=== PATIENT | male | born 1960 | race Hispanic/Latino ===

== ENCOUNTER 2018-06-11 09:07 | Inpatient (IN) | payer BC ==
[~2018-06-11] VITALS: Ht 167.6 cm; Wt 71.4 kg
[~2018-06-11 09:07] MED LIST: LACT1CAP58 PO; LEVO500T2 PO
[2018-06-11 09:46] LABS: BASOPHILS % (AUTO) 0.1 % (0.0-5.0); HEMATOCRIT 47.1 % (42-54); LYMPHOCYTES % (AUTO) 1.3 % (21.0-51.0); MEAN CORPUSCULAR HEMOGLOBIN 28.3 pg (27.0-33.0); MEAN CORPUSCULAR HGB CONC 32.5 g/dL (32.0-36.0); MONOCYTES % (AUTO) 6.1 % (3.0-13.0); NEUTROPHILS % (AUTO) 92.5 % (40.0-77.0); PLATELET COUNT (AUTO) 589 K/uL (130-400); RED BLOOD CELL COUNT(AUTO) 5.41 MIL/uL (4.50-6.20); RED CELL DISTRIBUTION WIDTH 15.4 % (11.0-15.5)
[2018-06-11 09:47] LABS: ALBUMIN 3.2 g/dL (3.5-5.0); BILIRUBIN,TOTAL 1.9 mg/dL (0.2-1.0); CREATININE 1.7 mg/dL (0.5-1.5); POTASSIUM 3.6 mmol/L (3.5-5.1); TOTAL PROTEIN, SERUM 8.1 g/dL (6.0-8.3); WHITE BLOOD COUNT (AUTO) 31.6 K/uL (4.8-10.8)
[2018-06-11] MEDS ORDERED: ONDANSETRON HCL 4 MG/2 ML VIAL ONE ×2 (09:50→13:34)
[2018-06-11 10:16] LABS: BAND NEUTROPHILS % (MANUAL) 21 % (0-2); LYMPHOCYTES % (MANUAL) 2 % (22-44); MAN.DIFF COMMENT-IMPRESSION MANUAL DIFFERENTIAL; MONOCYTES % (MANUAL) 7 % (2-9); SEGMENTED NEUTROPHILS % 70 % (40-70)
[2018-06-11] MEDS ORDERED: ZOSYN 3.375GM+NS 50ML 50 ML IV ONE (10:18)
[2018-06-11] MEDS ORDERED: FENTANYL CITRATE PF 50 MCG/1 ML 2ML VIAL ONE (11:17)
[2018-06-11] MEDS: SODIUM CHLORIDE 0.9% 1000ML 1,000 ML IV SCH (12:35)
[2018-06-11] MEDS ORDERED: LACTULOSE 20 GM/30 ML UDCUP PO PRN (12:45)
[2018-06-11] MEDS ORDERED: ACETAMINOPHEN 325 MG TAB PO PRN ×2 (12:45)
[2018-06-11] MEDS ORDERED: MORPHINE SULFATE 4 MG/1ML SYG IV PRN (12:45)
[2018-06-11] MEDS ORDERED: HYDRALAZINE HCL 20 MG/ML VIAL IV PRN (12:45)
[2018-06-11] MEDS ORDERED: MORPHINE SULFATE 2 MG/ML 1ML SYG IV PRN (12:45)
[2018-06-11] MEDS ORDERED: MORPHINE SULFATE 4 MG/1ML SYG ONE (13:35)
[2018-06-11 15:45] VITALS: BP 94/66
[2018-06-11] MEDS: ONDANSETRON HCL 4 MG/2 ML VIAL IV PRN (17:11)
[2018-06-11 18:32] LABS: CREATINE KINASE, TOTAL 42 U/L (21-232); MYOGLOBIN 127 ng/mL (10-92); TROPONIN I < 0.04 ng/mL (0.00-0.06)
[2018-06-11 19:00] VITALS: BP 100/65
[2018-06-11] MEDS ORDERED: HYDROMORPHONE 1 MG/1 ML AMP ONE (19:39)
[2018-06-11] MEDS ORDERED: LORAZEPAM 2 MG/ML 1 ML VIAL IVP PRN (22:00)
[2018-06-11 23:00] VITALS: BP 81/56
[2018-06-12] VITALS (38 sets, daily range): BP systolic 96–174; BP diastolic 45–103
[2018-06-12] MEDS: HYDROMORPHONE 1 MG/1 ML AMP IVP PRN (03:26)
--- NOTE | 2018-06-12 03:26 | NUR ---
NN CALL PLACED TO [facility] AND SPOKE WITH JEROME HUANG AND INFORMED OF CURRENT PATIENT STATUS SBP RANGING 85-97 AND DBP 56-58 WITH HR 120-130. NO ORDERS GIVEN AT THIS TIME, WILL CONTINUE TO MONITOR PATIENT. CALL LIGHT IN REACH.
[2018-06-12 03:43] LABS: APPEARANCE,URINE Cloudy (CLEAR); BILIRUBIN,URINE Moderate (NEGATIVE); GLUCOSE, URINE (UA) Negative (NEGATIVE); KETONES,URINE Negative (NEGATIVE); LEUKOCYTE ESTERASE ,URINE Moderate (NEGATIVE); NITRATE,URINE Positive (NEGATIVE); OCCULT BLOOD,URINE Negative (NEGATIVE); PROTEIN,URINE Trace mg/dL (NEGATIVE)
[2018-06-12 03:46] LABS: COLOR,URINE BROWN (YELLOW)
--- NOTE | 2018-06-12 04:00 | NUR ---
NN SPOKE WITH KYLER, COMMUNICATION EQUIPMENT REPAIRER AND INFORMED OF PATIENT STATUS AND PATIENT ASSIGNED TO ROOM 207. PATIENT INFORMED OF ROOM CHANGE AND STATED THAT HE WOULD CALL HIS SON TO LET HIM KNOW OF ROOM TRANSFER.
[2018-06-12 04:04] LABS: BACTERIA,URINE Moderate /HPF (None Seen)
[2018-06-12 04:06] LABS: SQUAMOUS EPITHELIAL CELL,UR 0-2 /HPF (0-2)
[2018-06-12 04:08] LABS: CREATININE,URINE RANDOM 141 mg/dL (30-135); SODIUM,URINE RANDOM 16 mmol/l (40-220)
[2018-06-12 04:13] LABS: AMPHET/METH SCREEN,URINE NEGATIVE (NEGATIVE); BARBITURATE SCREEN, URINE NEGATIVE (NEGATIVE); BENZODIAZEPINES SCREEN,URINE NEGATIVE (NEGATIVE); CANNABINOID SCREEN,URINE NEGATIVE (NEGATIVE); COCAINE SCREEN,URINE NEGATIVE (NEGATIVE); OPIATE SCREEN,URINE POSITIVE (NEGATIVE); PHENCYCLIDINE SCREEN,URINE NEGATIVE (NEGATIVE)
--- NOTE | 2018-06-12 04:17 | NUR ---
Patient transfer. Report received from Annabella MEMBRENO. from . Patient arrived with HR in the 130-140's and systolic bloop pressure in the 80's as per nurse patient has been steadily dropping as well as HR increasing. Paged Dr. Carolina. Brijesh PAINT TINTER alberene stone setter. Brijesh was notified of patients current vitals and laboratory results. Updated on patient current WBC count and lactic acid. Notified PAINT TINTER of patient was not on any antibiotics and only infusing normal saline at 150ml/hr. No orders were received. will continue to monitor patient.
[2018-06-12] MEDS: SODIUM CHLORIDE 0.9% 1000ML 1,000 ML IV SCH ×5 (04:53→21:17)
[2018-06-12 06:13] LABS: BASOPHILS % (AUTO) 0.1 % (0.0-5.0); HEMATOCRIT 45.2 % (42-54); LYMPHOCYTES % (AUTO) 4.1 % (21.0-51.0); MEAN CORPUSCULAR HEMOGLOBIN 27.6 pg (27.0-33.0); MEAN CORPUSCULAR HGB CONC 31.4 g/dL (32.0-36.0); MONOCYTES % (AUTO) 10.7 % (3.0-13.0); NEUTROPHILS % (AUTO) 85.1 % (40.0-77.0); PLATELET COUNT (AUTO) 466 K/uL (130-400); RED BLOOD CELL COUNT(AUTO) 5.14 MIL/uL (4.50-6.20); RED CELL DISTRIBUTION WIDTH 15.6 % (11.0-15.5); WHITE BLOOD COUNT (AUTO) 17.6 K/uL (4.8-10.8)
[2018-06-12 06:28] LABS: ALBUMIN 1.9 g/dL (3.5-5.0); BILIRUBIN,TOTAL 0.7 mg/dL (0.2-1.0); CREATININE 2.9 mg/dL (0.5-1.5); PHOSPHORUS 8.8 mg/dL (2.5-4.9); TOTAL PROTEIN, SERUM 6.3 g/dL (6.0-8.3)
[2018-06-12] MEDS: METOCLOPRAMIDE 10 MG/2 ML VIAL IVP SCH ×3 (06:38→17:00)
[2018-06-12 07:28] LABS: POTASSIUM 6.1 mmol/L (3.5-5.1)
[2018-06-12] MEDS ORDERED: SODIUM CHLORIDE 0.9% 1000ML 1,000 ML IV SCH (07:56)
[2018-06-12] MEDS ORDERED: SODIUM POLYSTYRENE SULFONATE 15 GM/60 ML ML PO SCH (08:00)
[2018-06-12] MEDS ORDERED: RENAL DOSE IV SCH (08:00)
[2018-06-12] MEDS ORDERED: SODIUM BICARB 8.4% 50ML SYRING 150 MEQ in DEXTROSE 5%-WATER 1,000 ML IV SCH (08:00)
[2018-06-12] MEDS ORDERED: DEXTROSE 50%-WATER 25 GM/50 ML VIAL IV SCH (08:15)
[2018-06-12] MEDS ORDERED: INSULIN HUMULIN R 100 UNIT/ML 3ML IV SCH (08:15)
--- NOTE | 2018-06-12 08:30 | NUR ---
DR. ESTRADA IN ROOM WITH PT. FOR CONSULT. DR. ESTRADA EXPLAINING PLAN OF CARE TO PT. MD INFORMED RE:VS, LABS AND CURRENT MEDICATION REGIMEN AND ORDERS RECEIVED; NEW ORDERS RECEIVED FROM DR. ESTRADA.
--- NOTE | 2018-06-12 08:35 | NUR ---
NGT LEFT CLAMPED AFTER KAYEXALATE ADMINISTRATION.
[2018-06-12] MEDS: FAMOTIDINE/PF 20 MG/2 ML VIAL IV SCH (08:41)
--- NOTE | 2018-06-12 08:50 | NUR ---
DR. GRIFFITH IN ROOM ASSESSING/SPEAKING WITH PT. RE:PLAN OF CARE. QUESTIONS ANSWERED BY DR. ESTRADA.
[2018-06-12] MEDS: ZOSYN 3.375GM+NS 50ML 50 ML IV SCH ×2 (08:52→22:16)
[2018-06-12] MEDS: NICOTINE 14 MG/ 24 HR PATCH TD SCH ×2 (08:53→12:31)
[2018-06-12] MEDS ORDERED: NICOTINE 14 MG/ 24 HR PATCH TD SCH (09:00)
--- NOTE | 2018-06-12 09:00 | NUR ---
TRANSFERRED TO ICU ROOM 207 VIA BED WITH BELONGINGS ACCOMPANIED BY THIS NURSE AND Guero GUZMAN, PCP. REPORT TO Elizabet HENDRICKS RN.
[2018-06-12] MEDS ORDERED: PHARMACY COMMUNICATION MISC SCH (09:15)
--- NOTE | 2018-06-12 09:15 | NUR ---
PATIENT RECEIVED FROM ROOM 203; REPORT GIVEN BY HASEEB MCDONALD IN TELE; PATIENT AAOX3, WITH NGT, F/C, HR 130S; SBP 90-120S; POTASSIUM 6.1; DR ESTRADA AND DR GRIFFITH AWARE.
[2018-06-12] MEDS: VANCOMYCIN HCL 250MG=5ML PO SCH ×6 (10:00→22:00)
[2018-06-12] MEDS ORDERED: COMPOUND PO MISCELLANEOUS 1 EACH MISC MISC PRN (10:00)
[2018-06-12] MEDS: M.V.I. IV [ADULT] 10 ML, FOLIC ACID 1 MG, THIAMINE HCL 100 MG in SODIUM CHLORIDE 0.9% 1... IV SCH (10:01)
--- NOTE | 2018-06-12 12:30 | NUR ---
PRIOR NICOTINE PATCH TO LEFT ARM HAD FALLEN OFF; NEW ONE PLACED TO RIGHT UPPER CHEST
--- NOTE | 2018-06-12 13:30 | NUR ---
DR ESTRADA UPDATED ON PATIENT STATUS; HR REMAINS ELEVATED 120-130S; PATIENT TO BE TAKEN TO OR LATER TODAY FOR EXPLORATORY LAP BY DR STAPLES; NO FURTHER ORDERS GIVEN
--- NOTE | 2018-06-12 13:32 | NUR ---
SONIDO PLAN VISITED WITH PATIENT. PATIENT WITH NURSING AND LAB. NOT STABLE. CM WILL FOLLOW UP ONCE PATIENT ABLE TO ANSWER QUESTIONS. Addendum: 06/12/18 at 1333 by YOVANI HERRERA RN CM Amended: Links added.
[2018-06-12 13:38] LABS: CREATININE 2.7 mg/dL (0.5-1.5); POTASSIUM 5.4 mmol/L (3.5-5.1)
[2018-06-12] MEDS: METRONIDAZOLE 500MG/100ML BAG 100 ML IV SCH ×2 (14:18→23:11)
--- NOTE | 2018-06-12 17:00 | NUR ---
PATIENT TAKEN TO OR AT THIS TIME
[2018-06-12] MEDS ORDERED: KETAMINE 50MG/ML SYRINGE 50 MG/ML DISP.SYRIN IV ONE (17:31)
[2018-06-12] MEDS ORDERED: VASOPRESSIN 20 UNITS/ML 1ML VIAL ONE (17:32)
[2018-06-12] MEDS ORDERED: FENTANYL CITRATE PF 50 MCG/1 ML 2ML VIAL ONE ×2 (17:40→18:11)
[2018-06-12] MEDS ORDERED: MIDAZOLAM HCL 1 MG/ML 2ML VIAL ONE (17:40)
[2018-06-12] MEDS ORDERED: ROCURONIUM 10MG/1ML SYR 10 MG/ML ML ONE (17:41)
[2018-06-12 19:40] LABS: ABG BASE EXCESS -15.2 mmol/L (-2.0-3.0); ABG HCO3 14.1 mmol/L (21.0-28.0); ABG OXYGEN SATURATION 99.5 % (95.0-99.0); ABG PCO2 47 mmHg (35-48)
[2018-06-12] MEDS ORDERED: NOREPINEPHRINE BITARTRATE 1 MG/1 ML ML IV ONE (19:41)
[2018-06-12 19:43] LABS: ABG BASE EXCESS -15.1 mmol/L (-2.0-3.0); ABG HCO3 14.1 mmol/L (21.0-28.0); ABG OXYGEN SATURATION 99.5 % (95.0-99.0); ABG PCO2 46 mmHg (35-48)
[2018-06-12 20:17] LABS: ABG BASE EXCESS -8.2 mmol/L (-2.0-3.0); ABG HCO3 16.4 mmol/L (21.0-28.0); ABG OXYGEN SATURATION 99.3 % (95.0-99.0); ABG PCO2 32 mmHg (35-48)
[2018-06-12] MEDS ORDERED: PROPOFOL 1000 MG/100 ML 100 ML IV ONE (20:30)
--- NOTE | 2018-06-12 20:30 | NUR ---
RECEIVED BY BED FROM OR SP EXP LAP. ORAL ETT IN PLACE AND PLACED ON VENT WITH ORDERED SETTINGS BY RT. BBS EQUAL PRESENT. ETT SECURED IN PLACE BY RT. HAS LEVOPHED DRIP INFUSING FROM OR. RRA LINE IN PLACE AND LEVELED AND ZEROED WITH GOOD WAVEFORM ON MONITOR. DDI TO MID ABDOMEN. CHAR IN PLACE TO L AND R ABDOMEN . RT COLOSTOMY IN PLACE WITH BAG AND NO DRAINAGE NOTE. L IELOSTOMY IN PLACE WITH BAG AND NO DRAIN AGE NOTED. FC TO BSD. .
[2018-06-12] MEDS ORDERED: SODIUM BICARB 50MEQ 50ML VIAL ONE (20:40)
--- NOTE | 2018-06-12 21:15 | NUR ---
WAKING UP LIFTING ARMS AND TRYING TO PULL LINES. FABRIC AND TEXTILE FACTORY WORKER HERE AND PROPOFOL STARTED FOR VENT CONTROL.
[2018-06-12 21:29] LABS: ABG BASE EXCESS -3.3 mmol/L (-2.0-3.0); ABG HCO3 20.2 mmol/L (21.0-28.0); ABG OXYGEN SATURATION 97.7 % (95.0-99.0); ABG PCO2 32 mmHg (35-48)
--- NOTE | 2018-06-12 21:30 | NUR ---
VISIT FAMILY MEMBERS IN AND QUESTIONS ANSWERED. NOTIFIED THAT 1 PERSON COULD STAY OVER NIGHT.
--- NOTE | 2018-06-12 21:40 | NUR ---
PHOSPHORIC ACID OPERATOR CALL TATE GIL FOR BENCHMARK CALLED AND GIVEN ABG RESULTS VS. ORDERS RECEIVED.
[2018-06-12] MEDS ORDERED: MIDAZOLAM 100MG-0.9% NS 100ML 100 ML IV PRN (22:00)
[2018-06-12] MEDS: FENTANYL 2500MCG+NS 250ML 250 ML IV PRN (22:07)
--- NOTE | 2018-06-12 22:15 | NUR ---
STATUS SEDATION CHANGED TO FENTANYL AND VERSED PER NEW ORDER. FAMILY MEMBER REMAINS AT BEDSIDE AND QUESTIONS ANSWERED.
[2018-06-13] VITALS (25 sets, daily range): BP systolic 113–166; BP diastolic 71–100
[2018-06-13] MEDS: SODIUM CHLORIDE 0.9% 1000ML 1,000 ML IV SCH ×3 (03:42→18:41)
[2018-06-13] MEDS: VANCOMYCIN HCL 250MG=5ML PO SCH ×2 (03:42)
[2018-06-13 03:59] LABS: MEAN CORPUSCULAR HEMOGLOBIN 27.7 pg (27.0-33.0); MEAN CORPUSCULAR HGB CONC 32.4 g/dL (32.0-36.0); MEAN CORPUSCULAR VOLUME 85.4 fL (79-99); PLATELET COUNT (AUTO) 410 K/uL (130-400); RED BLOOD CELL COUNT(AUTO) 4.22 MIL/uL (4.50-6.20); RED CELL DISTRIBUTION WIDTH 15.6 % (11.0-15.5); WHITE BLOOD COUNT (AUTO) 13.1 K/uL (4.8-10.8)
[2018-06-13 04:08] LABS: CREATININE 1.7 mg/dL (0.5-1.5); POTASSIUM 4.1 mmol/L (3.5-5.1)
[2018-06-13] MEDS: METOCLOPRAMIDE 10 MG/2 ML VIAL IVP SCH ×3 (05:40→18:41)
[2018-06-13] MEDS: METRONIDAZOLE 500MG/100ML BAG 100 ML IV SCH ×3 (06:05→22:08)
--- NOTE | 2018-06-13 07:00 | NUR ---
MD ROUNDS in to see pt - updated. Pt assessed by MD. Orders received - refer to EMR.
[2018-06-13] MEDS: ZOSYN 3.375GM+NS 50ML 50 ML IV SCH ×2 (09:09→20:53)
[2018-06-13] MEDS: FAMOTIDINE/PF 20 MG/2 ML VIAL IV SCH (09:10)
[2018-06-13] MEDS: M.V.I. IV [ADULT] 10 ML, FOLIC ACID 1 MG, THIAMINE HCL 100 MG in SODIUM CHLORIDE 0.9% 1... IV SCH (10:13)
--- NOTE | 2018-06-13 12:49 | NUR ---
DC PLAN PATIENT LIVES WITH SON. INDEPENDENT ABLE TO PERFORM ADL'S. PATIENT HAS NO SERVICES OR DME'S. FEELS SAFE TO RETURN HOME ONCE STABLE. AT THIS TIME PATIENT S/P EXP LAPAROTOMY. VENTED AT THIS TIME. Addendum: 06/13/18 at 1253 by YOVANI HERRERA RN CM Amended: Links added.
--- NOTE | 2018-06-13 13:20 | NUR ---
PT CARE Drsg change performed to abd incision. Wound bed clean - no drainage - no odor. Wound bed is pink. No bleeding. Damp 4x4's placed in wound bed - covered with abd pad and secured with medipore tape. No evidence of pt distress with wound care.
--- NOTE | 2018-06-13 15:41 | NUR ---
Pt Care Received report from Bridget MEMBRENO.
--- NOTE | 2018-06-13 16:17 | NUR ---
Turn Pt turned to left side. Assisted by Ananth MEMBRENO
--- NOTE | 2018-06-13 22:03 | NUR ---
CALL PLACED TO DR WEISS FOR HEPARIN ORDERED BY DR ESTRADA.
[2018-06-13] MEDS: HEPARIN SODIUM 5000UNIT/ML 1ML VIAL SQ SCH (22:08)
[2018-06-14] VITALS (23 sets, daily range): BP systolic 125–154; BP diastolic 67–98
--- NOTE | 2018-06-14 | NUR ---
PT CARE Drsg changed to abd incision. Wound bed pink, no drainage or odor. Damp 4x4's applied in incisional area- covered with abd pad and secured with medipore tape. Pt tolerated procedure well.
[2018-06-14] MEDS: SODIUM CHLORIDE 0.9% 1000ML 1,000 ML IV SCH (00:42)
[2018-06-14] MEDS: FENTANYL 2500MCG+NS 250ML 250 ML IV PRN (02:26)
[2018-06-14 04:08] LABS: HEMATOCRIT 30.3 % (42-54); MEAN CORPUSCULAR HEMOGLOBIN 27.6 pg (27.0-33.0); MEAN CORPUSCULAR HGB CONC 32.5 g/dL (32.0-36.0); NUCLEATED RED BLOOD CELLS 0.1 % (0.0-0.19); PLATELET COUNT (AUTO) 283 K/uL (130-400); RED BLOOD CELL COUNT(AUTO) 3.57 MIL/uL (4.50-6.20); RED CELL DISTRIBUTION WIDTH 15.6 % (11.0-15.5); WHITE BLOOD COUNT (AUTO) 12.9 K/uL (4.8-10.8)
[2018-06-14 04:25] LABS: ALBUMIN 1.1 g/dL (3.5-5.0); BILIRUBIN,TOTAL 0.7 mg/dL (0.2-1.0); CREATININE 1.1 mg/dL (0.5-1.5); MAGNESIUM 3.1 mg/dL (1.80-2.40); PHOSPHORUS 1.4 mg/dL (2.5-4.9); POTASSIUM 3.2 mmol/L (3.5-5.1); TOTAL PROTEIN, SERUM 4.5 g/dL (6.0-8.3)
[2018-06-14] MEDS: METRONIDAZOLE 500MG/100ML BAG 100 ML IV SCH (05:16)
[2018-06-14] MEDS: METOCLOPRAMIDE 10 MG/2 ML VIAL IVP SCH ×3 (06:52→17:56)
[2018-06-14] MEDS: 1/2 NORMAL SALINE 1,000 ML IV SCH ×2 (07:58→13:36)
[2018-06-14] MEDS: FAMOTIDINE/PF 20 MG/2 ML VIAL IV SCH ×2 (09:11→20:59)
[2018-06-14] MEDS: ZOSYN 3.375GM+NS 50ML 50 ML IV SCH ×2 (09:15→20:59)
[2018-06-14] MEDS: NICOTINE 14 MG/ 24 HR PATCH TD SCH (09:17)
[2018-06-14] MEDS: HEPARIN SODIUM 5000UNIT/ML 1ML VIAL SQ SCH ×2 (09:21→20:59)
[2018-06-14] MEDS: M.V.I. IV [ADULT] 10 ML, FOLIC ACID 1 MG, THIAMINE HCL 100 MG in SODIUM CHLORIDE 0.9% 1... IV SCH (14:34)
[2018-06-14 16:26] LABS: ABG BASE EXCESS -1.6 mmol/L (-2.0-3.0); ABG HCO3 21.8 mmol/L (21.0-28.0); ABG PCO2 33 mmHg (35-48)
--- NOTE | 2018-06-14 16:55 | NUR ---
Patient tolerating CPAP. RSBI of 41. Leak Test done. Dr. Sears notified. Orders to extubate received.
[2018-06-14] MEDS: POTASSIUM PHOS 15 mMOL+NS250ML 250 ML IV PRN (19:04)
[2018-06-14] MEDS: HYDROMORPHONE 1 MG/1 ML AMP IVP PRN (22:51)
[2018-06-15] VITALS (17 sets, daily range): BP systolic 118–152; BP diastolic 68–99
[2018-06-15] MEDS: 1/2 NORMAL SALINE 1,000 ML IV SCH ×2 (01:59→02:56)
[2018-06-15 03:51] LABS: HEMATOCRIT 29.4 % (42-54); MEAN CORPUSCULAR HEMOGLOBIN 27.7 pg (27.0-33.0); MEAN CORPUSCULAR HGB CONC 32.2 g/dL (32.0-36.0); NUCLEATED RED BLOOD CELLS 0.1 % (0.0-0.19); PLATELET COUNT (AUTO) 252 K/uL (130-400); RED BLOOD CELL COUNT(AUTO) 3.42 MIL/uL (4.50-6.20); RED CELL DISTRIBUTION WIDTH 15.8 % (11.0-15.5)
[2018-06-15 04:07] LABS: ALBUMIN 1.3 g/dL (3.5-5.0); CREATININE 0.8 mg/dL (0.5-1.5); MAGNESIUM 2.7 mg/dL (1.80-2.40); PHOSPHORUS 2.2 mg/dL (2.5-4.9)
[2018-06-15 04:20] LABS: POTASSIUM 2.9 mmol/L (3.5-5.1)
[2018-06-15] MEDS: LIDOCAINE HCL-MPF 1% 2ML VIAL IVP PRN ×2 (06:23→07:47)
[2018-06-15] MEDS: POTASSIUM CHLORIDE 20MEQ/100ML 100 ML IV PRN ×2 (06:24→07:46)
[2018-06-15] MEDS: METOCLOPRAMIDE 10 MG/2 ML VIAL IVP SCH ×3 (06:25→16:44)
[2018-06-15] MEDS: FAMOTIDINE/PF 20 MG/2 ML VIAL IV SCH ×2 (07:50→21:15)
[2018-06-15] MEDS: HEPARIN SODIUM 5000UNIT/ML 1ML VIAL SQ SCH ×2 (07:53→21:25)
[2018-06-15] MEDS: ZOSYN 3.375GM+NS 50ML 50 ML IV SCH ×2 (08:44→21:15)
[2018-06-15] MEDS: NICOTINE 14 MG/ 24 HR PATCH TD SCH (08:44)
[2018-06-15] MEDS: POTASSIUM CHLORIDE 20 MEQ in DEXTROSE 5%-WATER 1,000 ML IV SCH ×2 (08:47→18:29)
[2018-06-15] MEDS: POTASSIUM PHOS 15 mMOL+NS250ML 250 ML IV PRN (09:41)
[2018-06-15] MEDS: HYDROMORPHONE 1 MG/1 ML AMP IVP PRN ×2 (11:29→22:42)
--- NOTE | 2018-06-15 12:16 | NUR ---
Nutrition Intervention: Nutrition screen based on Alb 1.3. Pt. admitted with Dx of JANIYA, Hypercalcemia, Leukocytosis. Pt. S/P Exp. 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 Pt. intubated on mech vent post resp. failure- S/P extubation today(06/15/18). Pt. NPO. Pt. has NG tube to LIS. Labs reviewed(Alb 1.3). LBM: 06/10/18. SR-13, mid abd. incision/Left and right lower abd. CHAR drain. BMI: 24.6, normal. Recommendations: 1) When medically feasible, rec. Clear Liquids and advance as tolerated to 6 small meals Low Fiber Soft [place] diet. 2) Continue to monitor pt's nutritional status and diet advancement. 3) Consult RD as additional nutrition concerns arise. Addendum: 06/15/18 at [address] Amended: Links added.
[2018-06-15] MEDS: M.V.I. IV [ADULT] 10 ML, FOLIC ACID 1 MG, THIAMINE HCL 100 MG in SODIUM CHLORIDE 0.9% 1... IV SCH (18:14)
--- NOTE | 2018-06-15 20:00 | NUR ---
ASSESSMENT RESTING IN BED. ASSESSMENT COMPLETED SEE FLOW SHEET. FAMILY MEMBER AT BEDSIDE. Addendum: 06/15/18 at 2249 by JO MCDONALD RN RN Amended: Links added.
[2018-06-16] VITALS (7 sets, daily range): BP systolic 110–163; BP diastolic 70–92
[2018-06-16 03:50] LABS: HEMATOCRIT 31.9 % (42-54); MEAN CORPUSCULAR HEMOGLOBIN 27.8 pg (27.0-33.0); MEAN CORPUSCULAR HGB CONC 32.2 g/dL (32.0-36.0); MEAN CORPUSCULAR VOLUME 86.2 fL (79-99); NUCLEATED RED BLOOD CELLS 0.1 % (0.0-0.19); PLATELET COUNT (AUTO) 250 K/uL (130-400); RED CELL DISTRIBUTION WIDTH 16.4 % (11.0-15.5); WHITE BLOOD COUNT (AUTO) 7.9 K/uL (4.8-10.8)
[2018-06-16 04:08] LABS: CREATININE 0.7 mg/dL (0.5-1.5); MAGNESIUM 2.4 mg/dL (1.80-2.40); PHOSPHORUS 2.4 mg/dL (2.5-4.9); POTASSIUM 3.3 mmol/L (3.5-5.1)
--- NOTE | 2018-06-16 04:59 | NUR ---
DRESSING CHANGE TO ABDOMINAL WOUND. OPEN AREA WITH PINK TISSUE AND NO DRAINAGE. DAMP TO DRY DRESSING APPLIED AND COVERED WITH ABD.
[2018-06-16] MEDS: POTASSIUM CHLORIDE 20 MEQ in DEXTROSE 5%-WATER 1,000 ML IV SCH ×2 (05:05→23:15)
[2018-06-16] MEDS: METOCLOPRAMIDE 10 MG/2 ML VIAL IVP SCH (06:45)
[2018-06-16] MEDS: LOPERAMIDE HCL 2 MG CAP PO SCH ×3 (09:19→21:06)
[2018-06-16] MEDS: POTASSIUM PHOS 15 mMOL+NS250ML 250 ML IV PRN (09:23)
[2018-06-16] MEDS: ZOSYN 3.375GM+NS 50ML 50 ML IV SCH ×2 (09:26→21:06)
[2018-06-16] MEDS: FAMOTIDINE/PF 20 MG/2 ML VIAL IV SCH ×2 (09:27→21:06)
[2018-06-16] MEDS: HEPARIN SODIUM 5000UNIT/ML 1ML VIAL SQ SCH ×2 (09:31→21:31)
[2018-06-16] MEDS: NICOTINE 14 MG/ 24 HR PATCH TD SCH (10:18)
[2018-06-16] MEDS: M.V.I. IV [ADULT] 10 ML, FOLIC ACID 1 MG, THIAMINE HCL 100 MG in SODIUM CHLORIDE 0.9% 1... IV SCH (12:54)
[2018-06-16] MEDS: ONDANSETRON HCL 4 MG/2 ML VIAL IV PRN (13:04)
[2018-06-16] MEDS: HYDROMORPHONE 1 MG/1 ML AMP IVP PRN (13:04)
[2018-06-17] MEDS: POTASSIUM CHLORIDE 20 MEQ in DEXTROSE 5%-WATER 1,000 ML IV SCH (00:25)
[2018-06-17 04:09] VITALS: BP 117/68
[2018-06-17 08:01] LABS: HEMATOCRIT 34.2 % (42-54); MEAN CORPUSCULAR HEMOGLOBIN 27.7 pg (27.0-33.0); MEAN CORPUSCULAR HGB CONC 32.9 g/dL (32.0-36.0); MEAN CORPUSCULAR VOLUME 84.4 fL (79-99); NUCLEATED RED BLOOD CELLS 0.2 % (0.0-0.19); PLATELET COUNT (AUTO) 301 K/uL (130-400); RED BLOOD CELL COUNT(AUTO) 4.05 MIL/uL (4.50-6.20); RED CELL DISTRIBUTION WIDTH 15.8 % (11.0-15.5); WHITE BLOOD COUNT (AUTO) 8.8 K/uL (4.8-10.8)
[2018-06-17 08:02] VITALS: BP 111/70
[2018-06-17 08:16] LABS: CREATININE 0.6 mg/dL (0.5-1.5); MAGNESIUM 1.9 mg/dL (1.80-2.40); PHOSPHORUS 2.3 mg/dL (2.5-4.9); POTASSIUM 3.2 mmol/L (3.5-5.1)
[2018-06-17] MEDS: LOPERAMIDE HCL 2 MG CAP PO SCH (09:58)
[2018-06-17] MEDS: FAMOTIDINE/PF 20 MG/2 ML VIAL IV SCH ×2 (09:59→22:14)
[2018-06-17] MEDS: NICOTINE 14 MG/ 24 HR PATCH TD SCH (09:59)
[2018-06-17] MEDS: ZOSYN 3.375GM+NS 50ML 50 ML IV SCH (10:00)
[2018-06-17] MEDS: HEPARIN SODIUM 5000UNIT/ML 1ML VIAL SQ SCH ×2 (10:04→22:10)
[2018-06-17] MEDS: M.V.I. IV [ADULT] 10 ML, FOLIC ACID 1 MG, THIAMINE HCL 100 MG in SODIUM CHLORIDE 0.9% 1... IV SCH (11:13)
[2018-06-17] MEDS ORDERED: POTASSIUM PHOS 15 mMOL+NS250ML 250 ML IV PRN (11:15)
--- NOTE | 2018-06-17 11:15 | NUR ---
f/c order received to discontinue catheter. removed using aseptic technique. pt educated and instructed the need to void within 4-6 hours, if not, he agreed to have garrett cath re-inserted.
[2018-06-17 11:57] VITALS: BP 104/67
--- NOTE | 2018-06-17 14:57 | NUR ---
wound care incision pink in color. no foul odor, no drainage noted. cleansed with NS, packed with damp kerlix and lightly covered with abdominal pads and medipore tape. pt denied any pain. no signs of infection noted. Dr. Topete will do sx on Monday
--- NOTE | 2018-06-17 15:28 | NUR ---
DTV patient voided - denies any pain. also, explained to patient on reason he is still having bowel movements. residual stool in rectum.
[2018-06-17 16:00] VITALS: BP 116/65
[2018-06-17 20:15] VITALS: BP 117/63
[2018-06-17] MEDS ORDERED: MAGNESIUM 2GM PREMIX 50ML 50 ML IV PRN (20:30)
[2018-06-17] MEDS ORDERED: POTASSIUM CHLORIDE 10% ELIXIR 20 MEQ/15 ML UDCUP PO PRN (20:30)
[2018-06-17] MEDS ORDERED: LIDOCAINE HCL-MPF 1% 2ML VIAL IVP PRN (20:30)
[2018-06-17] MEDS: POTASSIUM CHLORIDE 20 MEQ ERTAB PO PRN (22:09)
[2018-06-17] MEDS: LOPERAMIDE 1 MG/7.5 ML UDCUP PO SCH (22:14)
[2018-06-17 23:24] VITALS: BP 107/64
[2018-06-18] MEDS: ZOSYN 3.375GM+NS 50ML 50 ML IV SCH ×3 (00:03→22:00)
[2018-06-18] MEDS: POTASSIUM CHLORIDE 20 MEQ ERTAB PO PRN ×5 (00:30→16:28)
[2018-06-18 03:30] VITALS: BP 121/73
[2018-06-18 06:19] LABS: BASOPHILS % (AUTO) 0.3 % (0.0-5.0); HEMATOCRIT 32.1 % (42-54); LYMPHOCYTES % (AUTO) 12.8 % (21.0-51.0); MEAN CORPUSCULAR HEMOGLOBIN 27.6 pg (27.0-33.0); MEAN CORPUSCULAR HGB CONC 32.9 g/dL (32.0-36.0); MEAN CORPUSCULAR VOLUME 83.9 fL (79-99); MONOCYTES % (AUTO) 12.7 % (3.0-13.0); NEUTROPHILS % (AUTO) 73.2 % (40.0-77.0); PLATELET COUNT (AUTO) 329 K/uL (130-400); RED BLOOD CELL COUNT(AUTO) 3.83 MIL/uL (4.50-6.20); RED CELL DISTRIBUTION WIDTH 16.2 % (11.0-15.5); WHITE BLOOD COUNT (AUTO) 8.8 K/uL (4.8-10.8)
[2018-06-18 06:30] LABS: CREATININE 0.7 mg/dL (0.5-1.5); MAGNESIUM 2.2 mg/dL (1.80-2.40); POTASSIUM 3.2 mmol/L (3.5-5.1)
[2018-06-18 08:00] VITALS: BP 121/72
[2018-06-18] MEDS: FAMOTIDINE/PF 20 MG/2 ML VIAL IV SCH ×2 (09:20→22:00)
[2018-06-18] MEDS: LOPERAMIDE HCL 2 MG CAP PO SCH (09:20)
[2018-06-18] MEDS: NICOTINE 14 MG/ 24 HR PATCH TD SCH (09:21)
[2018-06-18] MEDS: HEPARIN SODIUM 5000UNIT/ML 1ML VIAL SQ SCH ×2 (09:32→22:01)
[2018-06-18 12:00] VITALS: BP 122/67
[2018-06-18] MEDS: LOPERAMIDE 1 MG/7.5 ML UDCUP PO SCH ×2 (13:31→22:00)
[2018-06-18 16:00] VITALS: BP 122/65
--- NOTE | 2018-06-18 16:47 | NUR ---
Nutrition f/u: Pt with diet advanced to soft diet therapy. No nutritional concerns noted from pt at this time. Pt tolerating diet well. Alb 1.3, severe visceral protein depletion Recommend protein supplementation TID. Recommend continuation of current diet therapy. Consult RD as nutrition concerns arise. Addendum: 06/18/18 at [address] Amended: Links added.
[2018-06-18 20:47] VITALS: BP 123/81
[2018-06-18 23:48] VITALS: BP 122/72
[2018-06-19] VITALS (21 sets, daily range): BP systolic 103–148; BP diastolic 60–81
[2018-06-19 05:00] LABS: BASOPHILS % (AUTO) 0.2 % (0.0-5.0); EOSINOPHILS % (AUTO) 1.3 % (0.0-8.0); HEMATOCRIT 31.5 % (42-54); LYMPHOCYTES % (AUTO) 13.8 % (21.0-51.0); MEAN CORPUSCULAR HGB CONC 33.8 g/dL (32.0-36.0); MEAN CORPUSCULAR VOLUME 85.7 fL (79-99); MONOCYTES % (AUTO) 11.6 % (3.0-13.0); NEUTROPHILS % (AUTO) 73.1 % (40.0-77.0); NUCLEATED RED BLOOD CELLS 0.1 % (0.0-0.19); PLATELET COUNT (AUTO) 359 K/uL (130-400); RED BLOOD CELL COUNT(AUTO) 3.68 MIL/uL (4.50-6.20); RED CELL DISTRIBUTION WIDTH 16.1 % (11.0-15.5); WHITE BLOOD COUNT (AUTO) 8.8 K/uL (4.8-10.8)
[2018-06-19 05:18] LABS: CREATININE 0.6 mg/dL (0.5-1.5); POTASSIUM 3.8 mmol/L (3.5-5.1)
[2018-06-19 05:25] LABS: INR 0.97 (0.85-1.15); PROTHROMBIN TIME 10.2 SEC (9.6-11.6)
[2018-06-19] MEDS: FAMOTIDINE/PF 20 MG/2 ML VIAL IV SCH ×2 (08:33→21:23)
[2018-06-19] MEDS: HEPARIN SODIUM 5000UNIT/ML 1ML VIAL SQ SCH ×2 (08:34→22:02)
[2018-06-19] MEDS: LOPERAMIDE HCL 2 MG CAP PO SCH (08:34)
[2018-06-19] MEDS: ZOSYN 3.375GM+NS 50ML 50 ML IV SCH ×2 (08:34→21:23)
[2018-06-19] MEDS: NICOTINE 14 MG/ 24 HR PATCH TD SCH (08:34)
[2018-06-19 09:39] LABS: INR 0.98 (0.85-1.15); PARTIAL THROMBOPLASTIN TIME 24.8 SEC (26.3-35.5); PROTHROMBIN TIME 10.3 SEC (9.6-11.6)
[2018-06-19] MEDS: LOPERAMIDE 1 MG/7.5 ML UDCUP PO SCH ×2 (13:00→21:23)
[2018-06-19] MEDS: SODIUM CHLORIDE 0.9% 1000ML 1,000 ML IV SCH ×2 (17:55→21:23)
[2018-06-20] VITALS (23 sets, daily range): BP systolic 112–153; BP diastolic 64–83
[2018-06-20] MEDS: SODIUM CHLORIDE 0.9% 1000ML 1,000 ML IV SCH ×3 (05:08→22:20)
--- NOTE | 2018-06-20 05:30 | NUR ---
NN PATIENT REMAINS NPO FOR SURGICAL PROCEDURE WITH DR STAPLES. OR STAFF HERE TO TAKE PATIENT TO OR HOLDING VIA BED.
[2018-06-20] MEDS ORDERED: LACTATED RINGERS 1000ML 1,000 ML IV ONE (05:36)
[2018-06-20 06:06] LABS: HEMATOCRIT 32.1 % (42-54); MEAN CORPUSCULAR HGB CONC 32.8 g/dL (32.0-36.0); MEAN CORPUSCULAR VOLUME 85.2 fL (79-99); PLATELET COUNT (AUTO) 453 K/uL (130-400); RED BLOOD CELL COUNT(AUTO) 3.77 MIL/uL (4.50-6.20); RED CELL DISTRIBUTION WIDTH 16.3 % (11.0-15.5)
[2018-06-20 06:17] LABS: CREATININE 0.7 mg/dL (0.5-1.5)
[2018-06-20] MEDS ORDERED: FENTANYL CITRATE PF 50 MCG/1 ML 2ML VIAL ONE (06:38)
[2018-06-20] MEDS ORDERED: PROPOFOL 10 MG/ML 20ML VIAL IV ONE (06:38)
[2018-06-20] MEDS ORDERED: LIDOCAINE PF 2% 5ML ABBOJECT ONE (06:38)
[2018-06-20] MEDS ORDERED: BACITRACIN 28.4 GM OINT TP ONE (06:55)
[2018-06-20] MEDS ORDERED: MEPERIDINE-PF 25 MG/ML SYG ONE (07:15)
--- NOTE | 2018-06-20 08:20 | NUR ---
RETURNED FROM PACU ALERT AND AWAKE WITH NO RESPIRATORY DISTRESS ON ROOM AIR. REPORTS SORENESS TO THE ABDOMINAL SITE. MIDLINE INCISION IS COVERED WITH A GAUZE DRESSING THAT IS CLEAN, DRY AND INTACT. BILATERAL COLOSTOMY/ILEOSTOMY AND BILATERAL CHAR DRAIN IN PLACE. PLAN OF CARE WAS DISCUSSED WITH THE PATIENT WHO VOICED UNDERSTANDING. PRE-OP ORDERS TO BE RESUMED PER DR STAPLES'S ORDER.
[2018-06-20] MEDS: FAMOTIDINE/PF 20 MG/2 ML VIAL IV SCH ×2 (10:01→20:37)
[2018-06-20] MEDS: ZOSYN 3.375GM+NS 50ML 50 ML IV SCH ×2 (10:01→20:37)
[2018-06-20] MEDS: LOPERAMIDE HCL 2 MG CAP PO SCH (10:01)
[2018-06-20] MEDS: NICOTINE 14 MG/ 24 HR PATCH TD SCH (10:04)
[2018-06-20] MEDS: HYDROMORPHONE 1 MG/1 ML AMP IVP PRN (10:05)
[2018-06-20] MEDS: HEPARIN SODIUM 5000UNIT/ML 1ML VIAL SQ SCH ×2 (10:12→21:00)
--- NOTE | 2018-06-20 13:15 | NUR ---
DR STAPLES WAS PAGED REGARDING LULY CATH WITH PENDING CALL BACK.
[2018-06-20] MEDS: LOPERAMIDE 1 MG/7.5 ML UDCUP PO SCH ×2 (13:32→20:37)
--- NOTE | 2018-06-20 15:00 | NUR ---
CHARGE NURSE SPOKE WITH THE PA FOR DR STAPLES AND SHE SAID THAT SHE WILL BE ROUNDING.
[2018-06-21] VITALS (7 sets, daily range): BP systolic 113–154; BP diastolic 69–78
[2018-06-21 05:09] LABS: HEMATOCRIT 32.2 % (42-54); MEAN CORPUSCULAR HEMOGLOBIN 28.9 pg (27.0-33.0); MEAN CORPUSCULAR HGB CONC 33.6 g/dL (32.0-36.0); PLATELET COUNT (AUTO) 430 K/uL (130-400); RED BLOOD CELL COUNT(AUTO) 3.74 MIL/uL (4.50-6.20); WHITE BLOOD COUNT (AUTO) 6.8 K/uL (4.8-10.8)
[2018-06-21 05:17] LABS: CREATININE 0.7 mg/dL (0.5-1.5); POTASSIUM 3.7 mmol/L (3.5-5.1)
[2018-06-21] MEDS: NICOTINE 14 MG/ 24 HR PATCH TD SCH (08:09)
[2018-06-21] MEDS: ZOSYN 3.375GM+NS 50ML 50 ML IV SCH ×2 (08:10→22:08)
[2018-06-21] MEDS: LOPERAMIDE HCL 2 MG CAP PO SCH (08:10)
[2018-06-21] MEDS: FAMOTIDINE/PF 20 MG/2 ML VIAL IV SCH ×2 (08:10→22:07)
[2018-06-21] MEDS: SODIUM CHLORIDE 0.9% 1000ML 1,000 ML IV SCH ×2 (08:11→18:30)
[2018-06-21] MEDS: HEPARIN SODIUM 5000UNIT/ML 1ML VIAL SQ SCH ×2 (09:00→22:19)
--- NOTE | 2018-06-21 10:00 | NUR ---
dr. carlita mcconnell to d/c from standpoint, provide supplies. orders entered. open to air abd incisio.
--- NOTE | 2018-06-21 10:30 | NUR ---
DR. JHOAN HERMAN RE; PORTACATH STATES PT CAN FOLLOW UP OUTPATIENT FOR PORTACATH PLACEMENT.
--- NOTE | 2018-06-21 12:00 | NUR ---
Rich Abel aware of d/c from surgeon states will eval. patient in am. for d/c home.
[2018-06-21] MEDS: LOPERAMIDE 1 MG/7.5 ML UDCUP PO SCH ×2 (13:00→22:07)
--- NOTE | 2018-06-21 14:53 | NUR ---
CM Note: [facility] Spoke to Rafaela yancey/Omar JEFFRIES, pt is approved, will fax generated script for MD to sign, as per rep will have to order pt's colostomy supplies and will have it delivered at pt's residence. Primary nurse made aware, to give pt extra colostomy bags prior to discharge until pt able to receive own supplies. CM to cont to follow up.
--- NOTE | 2018-06-21 14:56 | NUR ---
CM Note: Pt to follow up w/[facility] for possible home health at home CM met with pt regarding MD recommendations for HH preventive care, pt will follow up w/[facility] after dc instead. Pt safe to dc home via private car. Colostomy supplies will be delivered at pt's residence. Primary nurse to teach pt and spouse colostomy and milan drain care. Primary nurse aware. CM to cont to follow up.
--- NOTE | 2018-06-21 18:20 | NUR ---
provided education to patient re; milan drain care and colostomy bag cleaning. will provide teaching of changing colostomy bags when available. pending to bring.
[2018-06-22 03:00] VITALS: BP 119/74
[2018-06-22] MEDS: SODIUM CHLORIDE 0.9% 1000ML 1,000 ML IV SCH (06:24)
[2018-06-22 07:30] VITALS: BP 112/69
[2018-06-22] MEDS ORDERED: PHARMACY COMMUNICATION MISC SCH (08:00)
[2018-06-22] MEDS: ZOSYN 3.375GM+NS 50ML 50 ML IV SCH (09:44)
[2018-06-22] MEDS: FAMOTIDINE/PF 20 MG/2 ML VIAL IV SCH (09:45)
[2018-06-22] MEDS: LOPERAMIDE HCL 2 MG CAP PO SCH (09:45)
[2018-06-22] MEDS: NICOTINE 14 MG/ 24 HR PATCH TD SCH (09:45)
[2018-06-22] MEDS: HEPARIN SODIUM 5000UNIT/ML 1ML VIAL SQ SCH (10:08)
[2018-06-22 11:00] VITALS: BP 112/75
[2018-06-22] MEDS ORDERED: AMOXICILLIN/POTASSIUM CLAV 500-125 TABLET PO SCH (11:45)
[2018-06-22] MEDS ORDERED: AMOX1TAB15 PO (13:40)
[2018-06-22] MEDS ORDERED: FAMO20TA8 PO (13:40)
[2018-06-22] MEDS: LOPERAMIDE 1 MG/7.5 ML UDCUP PO SCH (15:13)
[2018-06-22 16:00] VITALS: BP 126/80
--- NOTE | 2018-06-22 17:11 | NUR ---
PATIENT AND FAMILY TEACHING ON CHANGE AND MANAGING OF COLOSTOMY AND ILEOSTOMY BAG WITH ALSO INSTRUCTION ON MANAGING AND EMPTING CHAR DRAINS AND RECORDING OUTPT . TEACHING ONE TO ONE USING RETURN DEMONSTRATION WITH FAMILY . FAMILY RETURNED DEMONSTATION ON CUTTING SIZE ,PLACING PASTE AND AND KNOWING WHAT TO CHECK ON OSTOMY FOR SIGNS AND SYMPTOMS OF INFECTION AND CALLING THE DOCTOR IF NOTICING CHANGE IN DISCOLORATION ON STOMY SITE AND INCSION MID ABDOMINAL AREA AND ANY OTHER CONCERNS. FAMILY WHO WILL BE MANAGING DEMONSTRATED WELL .LET FAMILY KNOW TO FOLLOW UP WITH PRIMARY TO HAVE THE REFERRAL FOR HOME HEALTH TO CONTINUE WITH FURTHER MANAGING AND TEACHING..LET THEM KNOW ALSO PER CASE MANAGEMNT COLOSTOMY BAGS WILL BE DELIVERED TO ADDRESS FAMILY PROVIDED [address] [address].. Addendum: 06/22/18 at 1733 by JEFF WYANE RN RN INSTRUCTION WAS GIVEN TO PATIENT AND DAUGHTER
[2018-06-22] MEDS ORDERED: FAMOTIDINE 20MG TAB 20 MG TAB PO SCH (21:00)
== END 2018-06-22 18:15 | disposition home or self-care (01) | DRG 853 ==
LOC: EDH 09:07 → EDHIP 12:35 → 3BH 16:17 → 2BH 06-12 04:40 → 2AH 06-12 06:39 → 2BH 06-12 09:02 → 2CH 06-12 17:10 → 3DH 06-16 16:55
PROVIDERS: ADMIT Internal Medicine; ATTEND Internal Medicine
PROC: 0D9670Z Drainage of Stomach with Drainage Device, Via Natural or Artificial Opening (ICD-10-PCS; 2018-06-11)
PROC: 5A1945Z Respiratory Ventilation, 24-96 Consecutive Hours (ICD-10-PCS; 2018-06-12)
PROC: 0DTF0ZZ Resection of Right Large Intestine, Open Approach (ICD-10-PCS; principal; 2018-06-12 17:35)
PROC: 0BH17EZ Insertion of Endotracheal Airway into Trachea, Via Natural or Artificial Opening (ICD-10-PCS; 2018-06-12 17:35)
PROC: 0D1B0Z4 Bypass Ileum to Cutaneous, Open Approach (ICD-10-PCS; 2018-06-12 17:35)
PROC: 5A09357 Assistance with Respiratory Ventilation, Less than 24 Consecutive Hours, Continuous Positive Airway Pressure (ICD-10-PCS; 2018-06-15)
PROC: 0DBP8ZX Excision of Rectum, Via Natural or Artificial Opening Endoscopic, Diagnostic (ICD-10-PCS; 2018-06-19)
PROC: 0HQ7XZZ Repair Abdomen Skin, External Approach (ICD-10-PCS; 2018-06-20)
DX: A41.9 Sepsis, unspecified organism (principal); E43 Unspecified severe protein-calorie malnutrition; N17.0 Acute kidney failure with tubular necrosis; G92 Toxic encephalopathy; J96.00 Acute respiratory failure, unspecified whether with hypoxia or hypercapnia; E87.2 Acidosis; K56.609 Unspecified intestinal obstruction, unspecified as to partial versus complete obstruction; C18.9 Malignant neoplasm of colon, unspecified; E87.0 Hyperosmolality and hypernatremia; K55.9 Vascular disorder of intestine, unspecified; Z99.11 Dependence on respirator [ventilator] status; K56.691 Other complete intestinal obstruction; C20 Malignant neoplasm of rectum; G89.18 Other acute postprocedural pain; R65.20 Severe sepsis without septic shock; E11.9 Type 2 diabetes mellitus without complications; E83.52 Hypercalcemia; E86.1 Hypovolemia; F10.20 Alcohol dependence, uncomplicated; F17.200 Nicotine dependence, unspecified, uncomplicated; E87.5 Hyperkalemia; Z68.25 Body mass index [BMI] 25.0-25.9, adult; D64.9 Anemia, unspecified; E11.22 Type 2 diabetes mellitus with diabetic chronic kidney disease; E83.39 Other disorders of phosphorus metabolism; E87.6 Hypokalemia; I12.9 Hypertensive chronic kidney disease with stage 1 through stage 4 chronic kidney disease, or unspecified chronic kidney disease; K21.9 Gastro-esophageal reflux disease without esophagitis; N18.9 Chronic kidney disease, unspecified; Z93.3 Colostomy status; Z83.3 Family history of diabetes mellitus; Z82.49 Family history of ischemic heart disease and other diseases of the circulatory system
CPT/HCPCS: 36415; 36600; 45380; 45381; 71045; 74176; 80048; 80053; 80305; 81001; 82040; 82306; 82378; 82435; 82550; 82570; 82803; 82947; 83605; 83690; 83735; 83874; 83970; 84100; 84132; 84295; 84300; 84484; 85018; 85025; 85027; 85060; 85610; 85730; 87040; 88108; 88305; 88307; 93005; 94002; 94003; 94660; 97039; 99291; A4606; G0378; G0480; J0360; J1170; J1644; J1815; J2001; J2175; J2250; J2270; J2405; J2543; J2704; J2765; J3010; J3370; J3411; J3475; J3480; J3490; J7030; J7040; J7070; J7120